=== PATIENT | female | born 1955 | race Caucasian/White ===

== ENCOUNTER 2017-01-21 07:33 | Inpatient (IN) | payer OTHER ==
[~2017-01-21] VITALS: Ht 167.6 cm; Wt 89.8 kg
[~2017-01-21 07:33] MED LIST: ASPIR 8181 MG PO
--- NOTE | 2017-02-03 10:35 | NUR ---
02/03/17 1035 Zoey Gonzalez 1003-PATIENT ARRIVED TO PACU ON 6L MASK O2 SAT 98% NONAROUSABLE. PACKING IN VAGINA CDI NO DRAINAGE. MICHELLE CATHETER IN PLACE BRIGHT YELLOW FROM CYSTOSCOPY. 1010-PATIENT AROUSING TO VERBAL STIMULI ORIENTED TO SITUATION. DENIES PAIN OR NAUSEA. SPINAL LEVEL AT T10. 6L MASK O2 SAT 100%
--- NOTE | 2017-02-03 11:47 | NUR ---
PT ARRIVED TO FLOOR FROM PACU VIA STRETCHER. FULL ASSIST TO HOSPITAL BED SPINAL IS STILL EFFECTIVE. PT VERY DROWSY BUT FULLY ORIENTED. DENIES PAIN, NAUSEA, OR OTHER CONCERNS AT THIS TIME. PT SATTING 94% ON RA. IV IN RIGHT HAND INFUSING WNL, NO REDNESS OR INFLAMMATION AT INSERTION SITE. MINIMAL 1+ EDEMA NOTED OF BILATERAL LOWER EXTREMITIES. SCANT AMOUNT OF RED VAGINAL OUTPUT NOTED, SHANIQUE PAD IN PLACE. MICHELLE PATENT PUTTING OUT CLEAR, NEON YELLOW URINE. PULSE OX AND SCD'S IN PLACE. CALL LIGHT WITHIN REACH.
--- NOTE | 2017-02-03 12:53 | NUR ---
PT'S THERESA SOMEWHAT ANXIOUS-VISITED WITH HIM AND EXPLAINED PROCESS AND STAGES OF THE DAY. HE SEEMED MORE AT EASE. WILL CONTINUE TO FOLLOW
--- NOTE | 2017-02-03 13:17 | NUR ---
SCHEDULED MOTRIN ADMINISTERED. PT REPORTED LOW ABD "CRAMPING" 10/14. PT SIPPING ICE WATER AND EATING BITES OF APPLESAUCE, OCTAVIANO WELL. CALL LIGHT WITHIN REACH.
--- NOTE | 2017-02-03 14:20 | NUR ---
PT MEDICATED WITH IV DILAUDID FOR LOWER ABD, SHANIQUE AREA PAIN. ATE SOME CRACKERS, OCTAVIANO WELL. SPOKE WITH PT ABOUT PLAN OF CARE AND PLAN TO GET UP LATER THIS SHIFT. PT AGREEABLE. AT BEDSIDE. CALL LIGHT WITHIN REACH.
--- NOTE | 2017-02-03 16:05 | NUR ---
PT DANGLED AT EDGE OF BED AND STOOD. UPON STANDING PT BEGAN VOMITING. HAD PT SIT DOWN IMMEDIATELY. PT VOMITED APPROX 500ML OF YELLOWISH EMESIS. MEDICATED WITH IV ZOFRAN, STATES "I'M ALREADY FEELING BETTER." DENIED DIZZINESS OR LIGHT HEADEDNESS UPON STANDING. PT HAD A MODERATE AMOUNT OF VAGINAL BLEEDING, SHANIQUE PAD IN PLACE. PT LYING BACK IN BED COMFORTABLE. TAKING SIPS OF WATER. CALL LIGHT WITHIN REACH.
--- NOTE | 2017-02-03 18:15 | NUR ---
PATIENT SITTING UP IN BED FINISHING DINNER. GAVE FRESH ICE WATER. WASH CLOTH FOR FACE AND HANDS. CALL BUTTON IN REACH. NO OTHER NEEDS AT THIS TIME.
--- NOTE | 2017-02-03 18:30 | NUR ---
PT IN BED, RESTING OFF AND ON. DENIES PAIN OR NAUSEA AT THIS TIME. REPORTS THAT SHE ATE OF HER DINNER AND IS TOLERATING WELL. DENIES NEEDS OR CONCERNS AT THIS TIME. CALL LIGHT WITHIN REACH.
--- NOTE | 2017-02-03 20:00 | NUR ---
RECEIVED REPORT AT 1900. FOUND PT IN BED WITH AT BEDSIDE. PT DENIED PAIN AT THAT TIME.
--- NOTE | 2017-02-03 22:00 | NUR ---
V/S ARE WDL, PT DENIES PAIN AND N/V. ALL LOBES ARE CLEAR, ALL BOWEL TONES ARE HYPOACTIVE. BLEEDING IS MODERATE AT THIS TIME. PAD WAS CHANGED X1 SO FAR. URINE OUTPUT WAS 140ML FROM [id number]. WILL CONTINUE TO MONITOR CLOSELY. ENCOURAGED PT TO INCREASE PO INTAKE.
--- NOTE | 2017-02-04 01:10 | NUR ---
PT IS SLEEPING AT THIS TIME
--- NOTE | 2017-02-04 04:24 | NUR ---
PT IS SLEEPING AT THIS TIME.
--- NOTE | 2017-02-04 05:38 | NUR ---
PT OVERALL HAD A VERY UNEVENTFUL NIGHT. PAIN WAS WELL CONTROLLED OVERALL. NO PRN PAIN MEDS WERE NEEDED. PT RECEIVED REGLAN IV 10MG X2 THIS SHIFT. ALL QUADRANTS HAVE HYPOACTIVE BOWEL TONES THUS FAR. BLEEDING AT 0200 WAS SCANT. PT JUST WALKED TO BATHROOM AND IS TRYING FOR A BM. WILL PULL MICHELLE AFTER SHE IS DONE. V/S WERE WDL. URINE OUTPUT WAS ADEQUATE AND SO IS PO INTAKE.
--- NOTE | 2017-02-04 07:20 | NUR ---
BEDSIDE HANDOFF REPORT RECEIVED FROM ACCOUNTING GENERALIST RN. PT RESTING IN BED. PT DENIES NEEDS AT THIS TIME. DISCUSSED PLAN OF CARE WITH PT.
--- NOTE | 2017-02-04 08:21 | NUR ---
PT REQUESTIGN TO USE RESTROOM, SBA TO BATHROOM, ABLE TO VOID 100 ML, BLADDER SCAN FOR 65 ML. PT ASSISTED BACK TO BED. PT ON ROOM AIR, LUNG SOUNDS CLEAR. PT DENIES NAUSEA, BOWEL TONES ACTIVE, TOLERATING REGUALR DIET. PT CMS INTACT, PULSES PALPABLE. PT SMALL AMOUNT OF VAGINAL BLEEDING, PACKING IN PLACE. PT DENIES NEEDS AT THIS TIME.
[2017-02-04] MEDS ORDERED: IBUPROFEN800 MG PO (13:11)
[2017-02-04] MEDS ORDERED: NORCO 5-325 TA1 EACH PO (13:11)
[2017-02-04] MEDS ORDERED: KONDREMUL2.5 ML/5 M PO (13:12)
[2017-02-04] MEDS ORDERED: SENNA-DOCUSATE1 EAC1 PO (13:12)
--- NOTE | 2017-02-04 14:01 | NUR ---
PT GETTING READY TO BE DC'D TODAY. WAITING FOR HER . SHE WAS ALERT AND ORIENTED. EXTENDED A BLESSING AND SHE THANKED ME FOR COMING BY.
--- NOTE | 2017-02-13 08:20 | OR ---
[facility] [address], [place] [address] Signed DATE OF PROCEDURE: 02/03/17 SURGEON: Priscilla Golden MD. 1st PIERCER: Dr. Dominguez. PREOPERATIVE DIAGNOSES: Uterovaginal prolapse, stress incontinence. POSTOPERATIVE DIAGNOSES: Uterovaginal prolapse, stress incontinence. PROCEDURE Total vaginal hysterectomy, left salpingectomy, uterosacral plication, obturator sling procedure, cystoscopy, and rectocele repair with dermis reinforcement ANESTHESIA: Spinal with IV sedation. ESTIMATED BLOOD LOSS: 100 mL. DRAINS: Lira catheter. PACKS: Vaginal. INDICATIONS AND FINDINGS The patient is a 61-year-old female, 2, para 2, who has a long history of uterovaginal prolapse, which has become more and more symptomatic and she now desires a surgical intervention. She also has a long history of stress incontinence. Kegel exercises have not been helpful. At the time of the exam under anesthesia, the cervix was visible at the hymen. She had a cystocele presenting at the introitus. She also had a grade 2 rectocele. She also had a very short perineum. The uterus was small. The patient's right tube and ovary were previously absent. The patient's left tube and ovary were normal. DESCRIPTION OF PROCEDURE The patient was prepped and draped in the dorsal lithotomy position. A weighted speculum was placed. The anterior and posterior lips of the cervix were grasped with single-tooth tenaculum and injected with 1% Lidocaine with 1:200,000 epinephrine to a volume of 10 mL. The posterior cul-de-sac was then opened sharply with the Grace scissors. The swan neck speculum was then placed to the posterior cul-de-sac. The uterosacral ligaments were grasped bilaterally using the curved Z clamps, divided with the Grace scissors and suture ligated with 0 Vicryl. This was done bilaterally. Following this, the vaginal mucosa was scored with a knife and sharp dissection was used to push the vaginal tissue up off of the cervix. The anterior peritoneum, however, was not opened at that point. Electronically Signed By: PRISCILLA GOLDEN MD 02/13/17 0820 PATIENT NAME: ANTONIO JORDAN OPERATIVE REPORT DATE OF : 55 PHYSICIAN: PRISCILLA GOLDEN MD REPORT #: [id number] REPORT IS CONFIDENTIAL AND NOT TO BE RELEASED WITHOUT AUTHORIZATION [facility] [address], [place] [address] Signed Another bite was taken on each side using the curved Z clamps and divided with the Grace scissors and suture ligated with 0 Vicryl. Following this, further dissection was then anteriorly and the anterior cul-de-sac was opened sharply. Serial bites were taken on each side incorporating both the anterior and posterior leaves of the peritoneum in the cardinal ligament areas and the uterine vessel areas. Each of these were divided with the Grace scissors and suture ligated with 0 Vicryl. This was done bilaterally. At this point, the remaining broad ligament pedicles could be isolated and these were clamped across with a curved Z clamp and divided. Following this, these pedicles were tied with a free tie followed by a suture ligature of 0 Vicryl. Following this, the patient's left tube was identified and grasped with a [place] clamp. It was clamped across and removed sharply. This was followed by a free tie of 0 Vicryl. The cuff was then serially inspected and bleeding points were controlled. The posterior cuff had quite a bit of distance from the peritoneum to the vaginal mucosa and 2 fqmqcx-qc-gecchj were used to bring the peritoneum down to the posterior cuff. There was also some bleeding near the left uterine vessel. This was also controlled with a okqwqr-ce-yfyij suture of 0 Vicryl. Following this because of the significant prolapse, it was felt that plicating the uterosacral ligaments may be helpful preventing future prolapse. This was done with a series of 3 sutures with each of these entering the uterosacral ligament, reefing across the posterior peritoneum and exiting via the opposite uterosacral ligament. These were done using 0 Ethibond sutures. Following this, the vaginal cuff was closed. This was done by incorporating the vaginal mucosa, exteriorizing the broad ligament pedicles coming across the peritoneum anteriorly and exiting via the uterosacral ligament inferiorly. These were tied laterally and this was done bilaterally. The peritoneum was then closed with a ylnjep-nt-rcfbt suture of 3-0 Vicryl. The cuff itself was closed with a running locking stitch of 0 Vicryl. Following this, the cystocele pretty much had completely resolved. There was a fairly short anterior wall. It was felt that proceeding with the sling was the most appropriate option. The vaginal mucosa was then scored in the midline over the urethra with a knife. Sharp dissection was used to separate the vaginal mucosa from the underlying tissue and this was carried out laterally behind the pubic rami on each side. There was some tearing of the tissue on the patient's right. Following this, the obturator notches were identified and incisions were made with a knife overlying these notches. The trocars for the sling were then introduced at the lowest most medial portion of the obturator notch and then brought behind the pubic bone laterally and then brought into the apex of the vaginal incision previously made. This was done bilaterally. At this point, cystoscopy was done. The Lira catheter was removed. She had received IV fluorescein. The 70-degree scope was introduced into the bladder and the bladder was thoroughly evaluated. There was no evidence of any injury to the bladder. There was no evidence of any incursion of the trocars into the bladder. Clear yellow fluorescein-stained urine was seen to freely egress from both of the ureteral orifices. At this point, the cystoscopy was complete and the cystoscope was removed and the Lira catheter replaced. The sling was then Electronically Signed By: PRISCILLA GOLDEN MD 02/13/17 0820 PATIENT NAME: ANTONIO JORDAN OPERATIVE REPORT DATE OF : 55 PHYSICIAN: PRISCILLA GOLDEN MD REPORT #: [id number] REPORT IS CONFIDENTIAL AND NOT TO BE RELEASED WITHOUT AUTHORIZATION [facility] [address], [place] [address] Signed placed on the ends of each of the trocars and as the left hand trocar was being brought through externally, the end of the sling came off the trocar. At this point, this required the trocar to be replaced. This was done in the same manner and cystoscopy was then repeated to assure that there was no injury to the bladder. The Lira catheter was removed and a 70 degree scope again placed. Again, no injury was noted. The sling was then reattached on the patient's left side to the trocar and this was brought through the skin opening. This was done bilaterally. Care was taken to keep the sling in the mid urethral area and with appropriate tension. The excess sling was trimmed at the skin after removing the cover. Following this, the vaginal incision was closed with a running suture of 2-0 Vicryl. A separate closure was needed on the patient's right side because of the tear with a ogflmp-bw-qqnkm suture of 2-0 Vicryl. The labial skin incisions were closed with interrupted sutures of 3-0 Vicryl Rapide. Following this, the rectocele repair was begun. A triangle of tissue was removed from the perineal body with the knife. The vaginal mucosa was undermined and incised in the midline with the Metzenbaum scissors. This was carried out to the apex of the vagina. The posterior wall was noted to be fairly short. The vaginal mucosa was then from the underlying tissue with a combination of blunt and sharp dissection. The dissection was carried out superiorly and laterally to the ischial spines. The Geelbeio device was used to deploy a 0-Vicryl suture into the sacrospinous ligament medial and caudal to the spine. Following this, the perirectal fascial type tissue was reapproximated with interrupted sutures of 0 Vicryl. The tissue was of very poor quality. Following this, the rectal examination was done, which confirmed good reduction of the defect and no sutures compromising the rectallumen. Dermis, which had been prepared according to the package directions and trimmed into a T-shirt type shape, was then sutured at the arms to the sutures at the sacral spinous ligaments. This was tied down with appropriate tension across the top of the vagina. Following this, the graft was tacked into place with interrupted sutures of 2-0 Vicryl. Another rectal examination was done, which confirmed good reduction of the defect and no sutures compromising the rectal lumen. FloSeal was then injected around the sacrospinous ligaments on each side to aid in hemostasis. The vaginal mucosa was then trimmed slightly and the vaginal mucosa was closed in a running suture of 2-0 Vicryl from the apex of the vagina to the hymenal ring. The perineal body was quite short, but the vaginal canal was also fairly short. The decision was made to lengthen the vaginal canal with a running suture of 2-0 Vicryl reapproximating the vaginal tissue through the vestibule. Interrupted sutures of 2-0 Vicryl were placed on the perineal body in an effort to improve the length and strength of the perineum. The perineal skin was closed with subcuticular sutures of 2-0 Vicryl. Inspection of the vault showed good length and caliber, though it was shortened slightly. There was good hemostasis. The vaginal canal was then packed with sulfa-coated gauze. All sponge and needle counts were correct. She tolerated the procedure well and was taken to the recovery room in good condition. Electronically Signed By: PRISCILLA GOLDEN MD 02/13/17 0820 PATIENT NAME: ANTONIO JORDAN OPERATIVE REPORT DATE OF : 55 PHYSICIAN: PRISCILLA GOLDEN MD REPORT #: [id number] REPORT IS CONFIDENTIAL AND NOT TO BE RELEASED WITHOUT AUTHORIZATION [address] [address] Signed Priscilla Golden MD PJW/Modl /[id number] cc: MD Yash Pereira DO Electronically Signed By: PRISCILLA GOLDEN MD 02/13/17 0820 PATIENT NAME: ANTONIO JORDAN OPERATIVE REPORT DATE OF : 55 PHYSICIAN: PRISCILLA GOLDEN MD REPORT #: [id number] REPORT IS CONFIDENTIAL AND NOT TO BE RELEASED WITHOUT AUTHORIZATION
== END 2017-02-04 13:50 | disposition home or self-care (01) | DRG 664 ==
LOC: DSVR 02-03 05:40 → MS 02-03 06:45
PROVIDERS: ADMIT Obstetrics & Gynecology
PROC: 0UT6FZZ Resection of Left Fallopian Tube, Via Natural or Artificial Opening With Percutaneous Endoscopic Assistance (ICD-10-PCS; 2017-02-03)
PROC: 0US94ZZ Reposition Uterus, Percutaneous Endoscopic Approach (ICD-10-PCS; 2017-02-03)
PROC: 0JQC3ZZ Repair Pelvic Region Subcutaneous Tissue and Fascia, Percutaneous Approach (ICD-10-PCS; 2017-02-03)
PROC: 0UT9FZZ Resection of Uterus, Via Natural or Artificial Opening With Percutaneous Endoscopic Assistance (ICD-10-PCS; principal; 2017-02-03 06:45)
PROC: 0TSD4ZZ Reposition Urethra, Percutaneous Endoscopic Approach (ICD-10-PCS; 2017-02-03 06:45)
PROC: 0UTC7ZZ Resection of Cervix, Via Natural or Artificial Opening (ICD-10-PCS; 2017-02-03 06:45)
DX: N18.4 Chronic kidney disease, stage 4 (severe) (principal); N39.3 Stress incontinence (female) (male)
CPT/HCPCS: 00944; 36415; 80048; 85025; C1762; C1771; C2631; J0694; J1100; J1170; J1644; J1885; J2250; J2274; J2405; J2704; J2765; J3010; J7120

== ENCOUNTER 2021-02-14 22:57 | Emergency (ER) | payer MEDICARE, OTHER ==
[~2021-02-14] VITALS: Ht 167.6 cm; Wt 90.7 kg
[~2021-02-14 22:57] MED LIST changes: +IBUPROFEN800 MG PO; +KONDREMUL2.5 ML/5 M PO; +NORCO 5-325 TA1 EACH PO; +SENNA-DOCUSATE1 EAC1 PO
[2021-02-15] MEDS ORDERED: GUAIFENESIN AC473 ML PO (00:22)
== END 2021-02-15 00:46 | disposition home or self-care (01) ==
LOC: ED 22:57
DX: U07.1 COVID-19 (principal); Z79.82 Long term (current) use of aspirin
CPT/HCPCS: 71045; 99283-25

== ENCOUNTER 2022-07-24 06:20 | Day surgery (SDC) | payer MEDICARE, OTHER ==
[~2022-07-24] VITALS: Ht 167.6 cm; Wt 94.5 kg
[~2022-07-24 06:20] MED LIST changes: +CITRACAL-VIT D1 EAC2 PO; +FOSAMAX70 MG PO; +GUAIFENESIN AC473 ML PO; +OSTERA TABLET1 EACH PO; +PROBIOTIC1 EAC5 PO
[2022-07-24] MEDS ORDERED: HYDROCODON-ACE1 EA10 PO (08:19)
[2022-07-24] MEDS ORDERED: CELECOXIB200 MG PO (08:19)
--- NOTE | 2022-07-24 08:23 | NUR ---
07/24/22 0823 Ca Smith 0818- PT ARRIVES TO PACU NONAROUSABLE TO STIMULI NEEDING A JAW THRUST TO MAINTAIN PATENT AIRWAY PT OBSTRUCTS WITHOUT IT. RESP EVEN AND UNLABORED. OXYGEN SAT MID 90'S ON 6L VIA MASK. 0822- PT REMAINS NONAROUSABLE TO STIMULI WITH A JAW THRUST BEING PERFORMED.
--- NOTE | 2022-07-24 09:00 | NUR ---
PT BACK TO ROOM FROM PACU VIA BED. REPORT RECEIVED FROM NOAH JONES. PT ORIENTED BUT DROWSY AT THIS TIME. PT REPORTS 5/10 LFT KNEE PAIN (PT REPORTS TOLERABLE AND DOES NOT NEED PRN PAIN MED AT THIS TIME). PT REPORTS NO NAUSEA, DIZZINESS, N/T, SOB AT THIS TIME. PT 97% ON RA, NO SIGNS OF RESP. DISTRESS. LFT KNEE IS ELEVATED W/ICE ON TOP OF DRESSING. DRESSING IS C/D/I, NO SIGNS OF BLEEDING AT THIS TIME. PULSE PRESENT AND SKIN IS PINK/WARM/DRY. IV SITE WNL, FLUIDS INFUSING DIRECTED. SCD'S IN PLACE. PT TOLERATING SIPS OF WATER AT THIS TIME. AT BEDSIDE. CALL LIGHT WITHIN REACH, NO FURTHER NEEDS AT THIS TIME.
--- NOTE | 2022-07-24 09:20 | OR ---
[facility] [address] [place], [place] [address] Signed DATE OF OPERATION: 07/24/2022 SURGEON: Dimple Stubbs MD PREOPERATIVE DIAGNOSIS: Medial meniscus tear, left knee. POSTOPERATIVE DIAGNOSIS: Medial meniscus tear, left knee. PROCEDURE PERFORMED: Left knee arthroscopy with partial medial meniscectomy. WOOD BORING MACHINE OPERATOR: None. ANESTHESIA: General. BLOOD LOSS: 55 mL. BRIEF HISTORY: Jeri is a 67-year-old female with pain and locking in her knee. She had minimal to mild arthritis and MRI confirmed a large posteromedial meniscus tear. Risks and benefits of operative treatment were discussed with her. She elected to proceed. Once consent was obtained, she was taken to the operating room. After adequate anesthesia, she was placed on the operating room table. The right leg was flexed, abducted and externally rotated on a well-padded leg gracia. The left was placed on well-padded proximal thigh leg gracia and the leg was prepped and draped in a standard sterile fashion. Portal sites were then injected with 0.25% Marcaine with epinephrine. Standard inferolateral and superolateral portals were made and the scope was introduced in the knee. ARTHROSCOPIC FINDINGS: The patella showed grade 2 chondromalacia, grade 1 on the trochlear side. There is moderate synovitis throughout the knee. The medial compartment showed grade 3 changes to a small portion of the femur and grade 2 to the remaining of the joint. There was a complex tear extending from posterior horn to the posteromedial corner. This had several unstable flaps. The lateral compartment was intact except for one small area of grade 2 chondromalacia. Electronically Signed By: DIMPLE STUBBS MD 07/24/22 0920 PATIENT NAME: JERI JORDAN OPERATIVE REPORT DATE OF : 55 REPORT #: [id number] PHYSICIAN: DIMPLE STUBBS MD PCP: CLAUDY GANN PAC REPORT IS CONFIDENTIAL AND NOT TO BE RELEASED WITHOUT AUTHORIZATION [facility] [address] [place], [place] [address] Signed DESCRIPTION OF OPERATION: Standard inferomedial portal was made after localization using a spinal needle. The straight biter was then used to trim the meniscus tear back to a stable rim. Using the shaver, we then feathered out the meniscus and removed all debris. Several chondral flaps on the medial femoral condyle were also debrided. The scope was then withdrawn. Portals were closed with 3-0 nylon and dressed with Adaptic, ABD, and Elier wrap. The knee was injected with 60 mg of Toradol at the end of the case. She tolerated the procedure well. All sponge, needle, and instrument counts were correct. Dimple Stubbs MD BA/JENNIFERL /[id number] Copies: ~ Electronically Signed By: DIMPLE STUBBS MD 07/24/22 0920 PATIENT NAME: JERI JORDAN OPERATIVE REPORT DATE OF : 55 REPORT #: [id number] PHYSICIAN: DIMPLE STUBBS MD PCP: CLAUDY GANN PAC REPORT IS CONFIDENTIAL AND NOT TO BE RELEASED WITHOUT AUTHORIZATION
--- NOTE | 2022-07-24 09:35 | NUR ---
ANSWERED PT CALL LIGHT FOR NEED TO VOID. PT STANDING AT BEDSIDE STATED "I FEEL LIKE IM DRUNK", BEDSIDE COMMODE USED FOR SAFETY. PT GAIT IS WEAK AND SLIGHTLY UNSTEADY, 1PA TO BEDSIDE COMMODE. PT URINE VOID AT THIS TIME, SELF SHANIQUE CARE. PT NOW BACK IN BED. CALL LIGHT WITHIN REACH, NO FURTHER NEEDS 1000: IN ROOM FOR ASSESSMENT AND VS. VSS. PT REPORTS PAIN 5/10 (TOLERABLE, NO NEED FOR PRN PAIN MED PER PT). PT REPORTS NO NAUSEA, DIZZINESS, N/T, SOB. PT REMAINS ON RA W/O2 AT 98%. LFT EXTREMITY ELEVATED, ICE PACK IN PLACE, DRESSING IS C/D/I, NO SIGNS OF BLEEDING AT THIS TIME. SCD'S IN PLACE. IV SITE WNL, SALINE LOCKED. PT ABLE TO STAND AT BEDSIDE W/OUT DIFFICULTY AND ABLE TO TAKE SMALL STEPS TO AND FROM DOORWAY W/OUT DIFFICULTY AND STEADY/WEAK GAIT. PT GETTING DRESSED W/ASSISTANCE OF AT THIS TIME.
--- NOTE | 2022-07-24 10:15 | NUR ---
PROVIDED DISCHARGE TEACHING TO PT AND , ALL QUESTIONS ANSWERED AT THIS TIME. PT TRANSPORTED VIA WHEELCHAIR TO CAR BROUGHT TO FRONT ENTRANCE. NO FURTHER NEEDS. ALL PATIENTS ITEMS SENT W/PT IN GREEN BAG.
--- NOTE | 2022-07-24 10:26 | NUR ---
PT ALERT, ORIENTED AND SOMEWHAT ANXIOUS. PTS' WILL BE HERE AT SD. ALL QUESTIONS ASKED ANSWERED. PT REQUESTED PRAYER, GAVE BLESSING.WILL FOLLOW
== END 2022-07-24 10:15 | disposition home or self-care (01) ==
LOC: DS 06:20
PROVIDERS: ATTEND Specialist
PROC: 0SBD4ZZ Excision of Left Knee Joint, Percutaneous Endoscopic Approach (ICD-10-PCS; principal; 2022-07-24 07:55)
DX: S83.232A Complex tear of medial meniscus, current injury, left knee, initial encounter (principal); M94.262 Chondromalacia, left knee; M65.862 Other synovitis and tenosynovitis, left lower leg; X58.XXXA Exposure to other specified factors, initial encounter; Z79.82 Long term (current) use of aspirin
CPT/HCPCS: J0131; J0690; J1100; J1885; J2001; J2405; J2704; J7121

== ENCOUNTER 2025-02-17 12:30 | Observation (INO) | payer MEDICARE, OTHER ==
[~2025-02-17] VITALS: Ht 167.6 cm; Wt 81.5 kg
[~2025-02-17 12:30] MED LIST changes: +CELECOXIB200 MG PO; +CYCLOBENZAPRINE5 MG PO; +DULOXETINE HCL30 MG PO; +HYDROCODON-ACE1 EA10 PO; +METHYLPREDNISOLO4 M1 PO; +NAPROSYN500 MG PO
[2025-02-17] MEDS ORDERED: HYDROmorphone HCL 1 MG/ML SYR IV PRN ×3 (13:45→18:00)
[2025-02-17 13:53] LABS: BASOPHILS 0.7 % (0.1-1.2); EOSINOPHILS 0.8 % (0.7-5.8); LYMPHOCYTES 31.2 % (19.3-51.7); MCH 30.0 PG (25.6-32.2); MCHC 34.4 g/dL (32.2-35.5); MCV 87.3 fL (79.4-94.8); MONOCYTES 9.2 % (4.7-12.5); NEUTROPHILS 58.0 % (34.0-71.1); RBC 4.63 M/uL (3.93-5.22)
[2025-02-17 14:11] LABS: ALT (SGPT) 14.0 U/L (14-59); AST (SGOT) 18.0 U/L (15-37); GLOMERULAR FILTRATION RATE,EST 81.0 mL/min (>60); PROTEIN, TOTAL 7.2 g/dL (6.4-8.2); UREA NITROGEN 10.0 mg/dL (7-18)
[2025-02-17] MEDS ORDERED: SODIUM CHLORIDE 0.9% 1,000 ML IV SCH (15:00)
[2025-02-17 15:03] LABS: BLOOD/HGB, URINE NEGATIVE (Negative); KETONE, URINE SMALL (Negative); LEUK ESTERASE, URINE SMALL (negative); NITRITE, URINE NEGATIVE (negative)
[2025-02-17 15:13] LABS: BACTERIA, URINE NONE SEEN /hpf (negative); CASTS, URINE NONE SEEN \\lpf; CRYSTALS, URINE NONE SEEN (0-1+); EPITHELIAL CELLS, URINE SQUAMOUS 1+ /lpf (0-1+); REFLEX CULTURE, URINE No (No)
[2025-02-17] MEDS ORDERED: CEFAZOLIN SODIUM 2 GM in SODIUM CHLORIDE 0.9% 100 ML IV ONE (15:45)
[2025-02-17] MEDS ORDERED: fentaNYL citrate 100 MCG/2 ML VIAL ONE (16:27)
[2025-02-17] MEDS ORDERED: ROCURONIUM BROMIDE 50 MG/5 ML SYR ONE (16:32)
[2025-02-17] MEDS ORDERED: LIDOCAINE HCL 2% 5 ML SDV ONE (16:32)
[2025-02-17] MEDS ORDERED: DEXAMETHASONE SOD PHOS 4 MG/ML VIAL ONE (16:33)
[2025-02-17] MEDS ORDERED: SEVOFLURANE 250 ML BTL INH ONE (16:58)
[2025-02-17] MEDS ORDERED: ACETAMINOPHEN 1,000 MG/100 ML VIAL ONE (17:13)
[2025-02-17] MEDS ORDERED: METOCLOPRAMIDE HCL 10 MG/2 ML SDV IV PRN (17:30)
[2025-02-17] MEDS ORDERED: fentaNYL citrate 50 MCG/ML SDV IV PRN (17:30)
[2025-02-17] MEDS ORDERED: NALOXONE HCL 0.4 MG SYR IV PRN ×2 (17:30→18:00)
[2025-02-17] MEDS ORDERED: IBLOOD GLUCOSE TEST STRIP 1 EA TEST VI PRN (17:30)
[2025-02-17] MEDS ORDERED: SUGAMMADEX SODIUM 200 MG/2 ML ML ONE (17:31)
[2025-02-17] MEDS ORDERED: KETOROLAC TROMETHAMINE 30 MG/ML VIAL ONE (17:47)
--- NOTE | 2025-02-17 17:58 | NUR ---
02/17/25 1758 Jada Serna PATIENT ARRIVES IN PACU WITH ORAL AIRWAY IN PLACE. GISSELL WELLS IS HOLDING A JAW THRUST FOR ADEQUATE GAS EXCHANGE.
[2025-02-17] MEDS ORDERED: LACTATED RINGER'S 1,000 ML IV SCH (18:00)
[2025-02-17] MEDS ORDERED: HYDROCODONE/ACETA 5/325 TAB PO PRN (18:00)
--- NOTE | 2025-02-17 19:07 | NUR ---
PATIENT BROUGHT TO 113 FROM PACU, RECEIVED REPORT. CPOX IN PLACE, PATIENT ON 2L NC. VS OBTAINED AND RECORDED. RESPIRATIONS EVEN AND UNLABORED, PATIENT RESTING BUT AROUSABLE WITH VERBAL CUES.
[2025-02-17 19:14] VITALS: BP 143/71
--- NOTE | 2025-02-17 19:17 | NUR ---
1904 - pt arrived from pacu via bed. on o2, somnolent. [facility]
--- NOTE | 2025-02-17 19:54 | NUR ---
ROUNDED ON PATIENT, ASSESSMENT COMPLETED. PATIENT DROWSY, UNABLE TO STAY AWAKE AND ANSWER HISTORY AND ADMISSION QUESTIONS AT THIS TIME. ANSWERS RN QUESTIONS IN SHORT SENTENCES. ABDOMEN IS SOFT, BOWL TONES ABSENT AT THIS TIME. SURGICAL DRESSING IS C/D/I. SHE DENIES ANY NEEDS, VERBALIZED UNDERSTANDING AND USE OF THE CALL LIGHT WHICH IS WITHIN HER REACH.
[2025-02-17 20:10] VITALS: BP 130/77
--- NOTE | 2025-02-17 20:38 | OR ---
[facility] [address], [place] [address] Signed DATE OF OPERATION: 02/17/2025 SURGEON: Luther Castro DO PREOPERATIVE DIAGNOSIS: Incarcerated right inguinal hernia with partial small bowel obstruction. POSTOPERATIVE DIAGNOSIS: Incarcerated right inguinal hernia with partial small bowel obstruction. PROCEDURES PERFORMED: 1. Right inguinal hernia repair with Onlay mesh. 2. Release of partial small bowel obstruction. ANESTHESIA: General. ESTIMATED BLOOD LOSS: Minimal. DRAINS: None. COMPLICATIONS: None. DESCRIPTION OF THE PROCEDURE: The patient was brought to the operating room, placed in the supine position. After induction of general endotracheal anesthesia, the lower abdomen was then sterilely shaved, prepped, and draped in the usual fashion. A Lira catheter was placed prior to this. After the abdomen was sterilely shaved and prepped, appropriate time-out was taken, and all were in agreement. Utilizing an 11 blade scalpel in the inguinal region, a linear incision was then made on the right side down to the subcutaneous tissue. Bleeding was controlled with electrocautery. Subcutaneous tissues were then further mobilized to the external oblique aponeurosis. The aponeurosis was then opened utilizing both blunt and sharp technique and Bovie cautery. The floor of the inguinal canal was then inspected and found to be completely disrupted with a knuckle of small bowel, the antimesenteric border in the inguinal canal. The floor and the peritoneum were then opened utilizing a blunt and sharp technique and Bovie cautery. The knuckle of small bowel and the antimesenteric border was then released. It was not ischemic in Electronically Signed By: LUTHER CASTRO DO 02/17/252037 PATIENT NAME: ANTONIO JORDAN OPERATIVE REPORT DATE OF : 55 REPORT #: [id number] PHYSICIAN: LUTHER CASTRO DO PCP: CLAUDY GANN PAC REPORT IS CONFIDENTIAL AND NOT TO BE RELEASED WITHOUT AUTHORIZATION [facility] [address] [place], [place] [address] [address] and not compromised in any way. The small bowel was then run from the terminal ileum past the area of incarceration into the area of the jejunum. No further small bowel injuries were noted. The peritoneum was then closed with a running stitch of 0 Vicryl. The inguinal canal was then recreated and repaired with interrupted 0 Ethibonds. An Onlay mesh was then fashioned on top of the internal and transversalis and secured with the interrupted 0 Ethibonds along the ilioinguinal ligament, the pubic tubercle and along the musculature of the medial side. This was thoroughly irrigated and dried. No other bleeding sites were apparent. The aponeurosis was then reconstructed with a running stitch of 0 Vicryl, and the subcutaneous tissues were irrigated and dried. The subcutaneous tissue was closed with a 2-0 Vicryl in an inverted fashion, interrupted, and the skin was closed with a 4-0 Monocryl in a subcuticular interrupted fashion. The Dermabond dressing was applied. Sterile dressing was applied. The patient tolerated the procedure well and to recovery room in satisfactory condition. Luther Castro DO RS/MODL /[id number] Copies: ~ Electronically Signed By: LUTHER CASTRO DO 02/17/25 2038 PATIENT NAME: ANTONIO JORDAN OPERATIVE REPORT DATE OF : 55 REPORT #: [id number] PHYSICIAN: LUTHER CASTRO DO PCP: CLAUDY GANN PAC REPORT IS CONFIDENTIAL AND NOT TO BE RELEASED WITHOUT AUTHORIZATION
[2025-02-17 20:47] VITALS: BP 130/77
[2025-02-17 21:12] VITALS: BP 132/65
[2025-02-17 21:13] VITALS: BP 132/65
--- NOTE | 2025-02-17 21:14 | NUR ---
PT MORE AWAKE, STILL ON 1.5LPOST OP O2 NC. DENIES C/OPAIN. WILL TRY AND GIVE HER CLEAR FLUYIDS AND IF TOLERATED WILL TRY CRACKERS. PRIMARY RN TO BE NOTIFIED. PTS IN ROOM.
--- NOTE | 2025-02-17 21:30 | NUR ---
Pt more awake, tolerating clear liquids, tolerated well, after 20 minutes, no c/o emesis or cough, saltine crackers given
[2025-02-17] MEDS ORDERED: DEXTROSE 5% IV SCH (22:00)
[2025-02-17] MEDS ORDERED: CEFAZOLIN SOD IV SCH (22:00)
[2025-02-17 22:05] VITALS: BP 120/59
--- NOTE | 2025-02-17 22:21 | NUR ---
PATIENT WOKE TO RN ENTERING ROOM, CPOX AT BEDSIDE. SO AT BEDSIDE SLEEPING. RESPIRATIONS EVEN AND UNLABORED, SCHEDULED IV MEDICATION STARTED AT THIS TIME. SHE DENIES ANY NEEDS, STATES SHE IS TOLERATING WATER AND CRACKERS WELL, DENIES NAUSEA. CALL LIGHT IN REACH
--- NOTE | 2025-02-17 22:56 | NUR ---
ROUNDED ON PATIENT, PATIENT RESTING WITH EYES CLOSED, RESPIRATIONS EVEN AND UNLABORED. NO NEEDS IDENTIFIED, IV MEDICATION COMPLETED. IVF CONTINUING TO INFUSE WITHOUT DIFFICULTY. CALL LIGHT IN REACH
--- NOTE | 2025-02-17 23:57 | NUR ---
PRN PAIN MEDICATION GIVEN TO PATIENT. PATIENT IS ALERT AND ORIENTED, RATING PAIN 7/10. PILLOW UNDER LEFT HIP PER PATIENT REQUEST. STATES NO OTHER NEEDS, CALL LIGHT IN REACH.
--- NOTE | 2025-02-18 01:35 | NUR ---
ROUNDED ON PATIENT. PATIENT RESTING WITH EYES CLOSED, RESPIRATIONS EVEN AND UNLABORED. CPOX AT BEDSIDE. NO NEEDS IDENTIFIED, CALL LIGHT IN REACH
[2025-02-18 02:16] VITALS: BP 124/67
[2025-02-18 02:17] VITALS: BP 124/67
--- NOTE | 2025-02-18 02:27 | NUR ---
PATIENT UP TO COMMODE. VOIDED AND BACK TO BED WITHOUT DIFFICULTY. SHE REPORTS SOME DRY COUGHING, EDUCATED ON HUGGING PILLOW WHILE COUGHING TO HELP WITH THE PAIN. CPOX AT BEDSIDE, PATIENT ON 1L NC. VS OBTAINED AND RECORDED, INTAKE AND OUTPUT DOCUMENTED. NO FURTHER NEEDS, CALL LIGHT IN REACH
--- NOTE | 2025-02-18 03:51 | NUR ---
ROUNDED ON PATIENT, RESPIRATIONS EVEN AND UNLABORED. NO NEEDS IDENTIFIED, CPOX AT BEDSIDE, PATIENT ON 1L NASAL CANNULA. CALL LIGHT IN REACH
[2025-02-18 05:35] VITALS: BP 118/64
--- NOTE | 2025-02-18 06:05 | NUR ---
ROUNDED ON PATIENT, PATIENT REPORTS 7/10 ABD PAIN, REQUESTS PRN PAIN MEDICATION. NEW IVF BAG HUNG PER ORDER. PATIENT DENIES ANY OTHER NEEDS, BOWEL TONES ACTIVE, TENDER. SURGICAL DRESSING C/D/I. CALL LIGHT IN REACH
[2025-02-18 06:28] VITALS: BP 118/64
--- NOTE | 2025-02-18 06:41 | NUR ---
SKILL LABOR HELPT PT USE THE BSC AND BACK TO BED. SKILL LABOR LEFT PT WITH SCD'S ON AND CALL LIGHT WITHIN REACH.
--- NOTE | 2025-02-18 06:55 | NUR ---
IN ROOM IN RESPONSE TO IV PUMP ALARMING. IV MEDICATION COMPLETE. PATIENT RESTING, RESPIRATIONS EVEN AND UNLABORED. NO NEEDS IDENTIFIED, CALL LIGHT IN REACH
--- NOTE | 2025-02-18 07:13 | NUR ---
VERBAL REPORT RECIVED BY ROBERT SLOAN. PATIENT RESTING AWAKE IN BED WHITNEY FLORES IN THE ROOM. CPOX IN PLACE, BREATHING EVEN AND UNLABORED. CALL LIGHT IN REACH NO REQUESTS AT THIS TIME.
[2025-02-18] MEDS ORDERED: IPRATROPIUM BRO30 ML NAS (07:23)
[2025-02-18] MEDS ORDERED: VALACYCLOVIR1000 MG PO (07:25)
--- NOTE | 2025-02-18 07:59 | NUR ---
DR HAMILTON NOTIFIED OF 02/17 POTASSIUM OF 3.2 AND NO AM LABS FOR 02/18. NO NEW ORDERS RECIEVED.
--- NOTE | 2025-02-18 09:30 | NUR ---
IS PROVIDED, EDUCATION ON IS PROVIDED. PATIENT DEMONSTRATES AND VERBALIZES UNDERSTANDING OF IS USE.
--- NOTE | 2025-02-18 09:37 | NUR ---
PATIENT HAD 800 ML EMESIS, NOTFIED. JORGE RECIEVED FOR NAUSEA (SEE EMAR). FRESH ICE PACK GIVEN FOR PATIENT COMFORT. NO FURTHER EMESIS AT THIS TIME, PATIENT RESTING IN BED. FAMILY IN THE ROOM, CALL LIGHT IN REACH.
[2025-02-18 09:42] VITALS: BP 115/72
[2025-02-18 09:44] VITALS: BP 115/72
[2025-02-18] MEDS ORDERED: HYDROCODON-ACE1 EA10 PO (09:49)
[2025-02-18] MEDS ORDERED: CEPHALEXIN500 M1 PO (09:50)
[2025-02-18] MEDS ORDERED: ONDANSETRON ODT4 MG PO (09:51)
--- NOTE | 2025-02-18 10:42 | NUR ---
CHANGED THE PT'S GOWN, SHE HAD THROWN UP AND HER GOWN WAS MESSY. GOT PT FRESH ICE WATER, ICE CHIPS, AND AN ICE PACK. PT HAS A VISITOR IN THE ROOM AND THE TV ON, SITTING UP IN BED. CALL LIGHT WITHIN REACH AND PT REPORTS NEEDING NOTHING MORE AT THIS TIME.
--- NOTE | 2025-02-18 11:18 | NUR ---
medications reconiciled
--- NOTE | 2025-02-18 11:36 | NUR ---
PT DENIES NAUSEA. EATS CRACKERS, TOLERATES THIS WELL. NORCO RECEIVED FOR INCISIONAL PAIN, SEE EMAR.
--- NOTE | 2025-02-18 12:05 | NUR ---
DISCUSSED DISCHARGE INSTRUCTIONS WITH PT AND DAUGHTER, BOTH VERBALIZE UNDERSTANDING. VSS. IV REMOVED, TIP INTACT, GAUZE AND COBAN DRESSING APPLIED TO SITE, PT TOLERATED WELL. PT DRESSES SELF. PT LEAVES MED-SURG WITH BELONGINS; CELL PHONE LIBRARY CLERK (PHONE TAKNE BY SPOUSE), RX AND FRESH ICE PACK. NII HOSE IN PLACE TO BLE. PT ESCORTED VIA WHEELCHAIR TO PRIVATE CAR DRIVEN BY FAMILY MEMBER.
[2025-02-19] MEDS ORDERED: CEPHALEXIN500 MG PO (18:15)
== END 2025-02-18 12:05 | disposition home or self-care (01) ==
LOC: ED 12:30 → MS 12:32
PROVIDERS: Emergency Medicine; ADMIT Surgery; ATTEND Surgery
PROC: 0YU50JZ Supplement Right Inguinal Region with Synthetic Substitute, Open Approach (ICD-10-PCS; principal; 2025-02-17 17:03)
DX: K40.30 Unilateral inguinal hernia, with obstruction, without gangrene, not specified as recurrent (principal); K56.600 Partial intestinal obstruction, unspecified as to cause
CPT/HCPCS: 00830; 36415; 72193; 80053; 81001; 85025; 94762; 96365; 96375; 96376; 99285-25; C1781; J0131; J0688; J0690; J1100; J1171; J1885; J2003; J2405; J2704; J3010; J3490; J7030; J7121; Q9967

== ENCOUNTER 2025-02-19 17:43 | Inpatient (IN) | payer MEDICARE, OTHER ==
[~2025-02-19] VITALS: Ht 167.6 cm; Wt 79.1 kg
[~2025-02-19 17:43] MED LIST changes: +CEPHALEXIN500 M1 PO; +IPRATROPIUM BRO30 ML NAS; +ONDANSETRON ODT4 MG PO; +VALACYCLOVIR1000 MG PO
--- OUTSIDE RECORDS SUMMARY | 2025-02-19 17:50 | XMS ---
PreManage Notification: ANTONIO JORDAN Security Car Racer Events No recent Security Events currently on file CRITERIA MET - [facility] [place] - 2 Visits in 30 Days CARE PROVIDERS There are no care providers on record at this time. Dani has no Care Guidelines for this patient. Joni VISIT COUNT (12 MO.) 2 [facility] Nettie H. TOTAL 2 NOTE: Visits indicate total known visits. ED/C VISIT TRACKING (12 MO.) 02/19/2025 17:44 [facility] [place] TYPE: Emergency COMPLAINT: - POST OP PROBLEM 02/17/2025 12:31 [facility] TYPE: Emergency COMPLAINT: - PELVIC PAIN INPATIENT VISIT TRACKING (12 MO.) 02/17/2025 12:32 [facility] [place] TYPE: Observation COMPLAINT: - RIGHT INGUINAL HERNIA WITH SMALL BOWL OBSTRUCTION [email or web address]
[2025-02-19] MEDS ORDERED: CEPHALEXIN500 MG PO (18:15)
[2025-02-19 19:30] LABS: BASOPHILS 0.3 % (0.1-1.2); EOSINOPHILS 0.1 % (0.7-5.8); LYMPHOCYTES 7.2 % (19.3-51.7); MCH 30.0 PG (25.6-32.2); MCHC 33.4 g/dL (32.2-35.5); MCV 89.7 fL (79.4-94.8); MONOCYTES 7.4 % (4.7-12.5); NEUTROPHILS 84.6 % (34.0-71.1); RBC 5.14 M/uL (3.93-5.22)
[2025-02-19] MEDS ORDERED: PROCHLORPERAZINE EDISYLATE 10 MG/2 ML VIAL IV ONE (19:45)
[2025-02-19] MEDS ORDERED: MORPHINE SULFATE 4 MG/ML VIAL IV ONE (19:45)
[2025-02-19] MEDS ORDERED: SODIUM CHLORIDE 0.9% 1,000 ML IV ONE (19:45)
[2025-02-19 19:48] LABS: ALT (SGPT) 17.0 U/L (14-59); AST (SGOT) 19.0 U/L (15-37); GLOMERULAR FILTRATION RATE,EST 52.0 mL/min (>60); PROTEIN, TOTAL 7.6 g/dL (6.4-8.2); UREA NITROGEN 20.0 mg/dL (7-18)
[2025-02-19 21:03] LABS: BLOOD/HGB, URINE NEGATIVE (Negative); KETONE, URINE TRACE (Negative); LEUK ESTERASE, URINE NEGATIVE (negative); NITRITE, URINE NEGATIVE (negative)
[2025-02-19 21:10] LABS: BACTERIA, URINE NONE SEEN /hpf (negative); CASTS, URINE NONE SEEN \\lpf; CRYSTALS, URINE NONE SEEN (0-1+); EPITHELIAL CELLS, URINE SQUAMOUS 3+ /lpf (0-1+); REFLEX CULTURE, URINE No (No)
[2025-02-19] MEDS ORDERED: SUCCINYLCHOLINE IN 0.9% NACL 200 MG/10 ML SYRINGE ONE (22:38)
[2025-02-19] MEDS ORDERED: LIDOCAINE HCL 2% 5 ML SDV ONE (22:38)
[2025-02-19] MEDS ORDERED: MAGNESIUM SULFATE 1 GM/2 ML VIAL ONE (22:38)
[2025-02-19] MEDS ORDERED: KETAMINE in NS 50 MG/5 ML SYR ONE (22:38)
[2025-02-19] MEDS ORDERED: fentaNYL citrate 100 MCG/2 ML VIAL ONE (22:38)
[2025-02-19] MEDS ORDERED: ROCURONIUM BROMIDE 50 MG/5 ML SYR ONE (22:38)
[2025-02-19] MEDS ORDERED: DEXAMETHASONE SOD PHOS 4 MG/ML VIAL ONE (22:38)
[2025-02-19] MEDS ORDERED: SODIUM CHLORIDE 0.9% 40 ML IV ONE (22:41)
[2025-02-19] MEDS ORDERED: ACETAMINOPHEN 1,000 MG/100 ML VIAL ONE (22:41)
[2025-02-20] VITALS (10 sets, daily range): BP systolic 120–131; BP diastolic 53–84
[2025-02-20] MEDS ORDERED: DEXAMETHASONE SOD PHOS 4 MG/ML VIAL ONE (00:11)
[2025-02-20] MEDS ORDERED: Ropivacaine HCl 0.5% 30 ML VIAL ONE (00:11)
[2025-02-20] MEDS ORDERED: SUGAMMADEX SODIUM 200 MG/2 ML ML ONE (00:19)
[2025-02-20] MEDS ORDERED: BUPIVACAINE HCL 0.5% 30 ML VIAL ONE (00:19)
[2025-02-20] MEDS ORDERED: PROCHLORPERAZINE EDISYLATE 10 MG/2 ML VIAL IV PRN ×2 (00:45)
[2025-02-20] MEDS ORDERED: MORPHINE SULFATE 10 MG/ML VIAL IV PRN ×2 (00:45)
[2025-02-20] MEDS ORDERED: LACTATED RINGER'S 1,000 ML IV SCH ×2 (00:45)
--- NOTE | 2025-02-20 01:28 | NUR ---
02/20/25 0128 Odin Hoffman 0053-PT INTO PACU ON 6L O2 VIA MASK. SATS STABLE AT 95% OR GREATER. PT NON-RESPONSIVE TO TACTILE STIMULI. NG TUBE IN PLACE TO R NARE ATTACHED TO WALL SUCTION. 0058-PT NOTED WITH SLIGHT SNORE. HEAD REPOSITIONED AND SNORE RESOLVED. BREATHING REMAINS EVEN AND UNLABORED. SATS STABLE ON RA AT 95%^ OR GREATER. SURGICAL DRSG APPEARS CDI. 0103-PT REMAINS UNRESPONSIVE TO TACTILE STIMULI. O2 REMAINS IN PLACE VIA NC AT 6L/MIN WITH SATS 95% OR GREATER. 0108-PTS HEAD REPOSITIONED WITH RESOLUTION OF SNORING NOTED. BREATHING APPEARS EVEN AND UNLABORED. 0112-PT AROUSING WITH TACTILE STIMULI. PT DENIES PAIN OR NAUSEA WHEN ASKED. 0114-O2 MASK REMOVED. SATS STABLE AT 92% OR GREATER. 0116-PT DOZING ON AND OFF. SATS NOTED TO DECREASE TO 88%. PT ENSOURAGED TO DEEP BREATH. SATS REMAIN IN UPPER 80'S.NC PLACED AT 2L. 0117-SATS REMAIN IN UPPER 80'S. O2 TITRATED UP TO 3L. SATS IMPROVED TO 90-94%. 0122. PT CONT TO DOZE ON AND OFF. EASILY AROUSES TO VERBAL STIMULI. PT CONT TO DENY PAIN OR NAUSEA WHEN ASKED. 0127-BREATHING REMAINS EVEN AND UNLABORED. SATS STABLE AT 90-92% ON 3L/NC.
--- NOTE | 2025-02-20 01:40 | NUR ---
admitted at 0140 room 112 via bed from PACU, very drowsy, on 3LNC, not chronic, POX post op at bedside. RNGT to LIWS in place. draining green colored drainage. R inguinal area dressing CDI. IVF infusing RA. scds in place. had a f/c that was dc'd at 0100 or so. Pt NPO, oral care done, cooperative with assesment, but too drowsy to complete admit questrions, will complete ffrom previous admit a few days ago, that admit was done by this RN. Family not in room at this time, will clarify some questions with fmily when they arrive
[2025-02-20] MEDS ORDERED: CEFOXITIN SODIUM IV SCH ×2 (02:00)
[2025-02-20] MEDS ORDERED: SODIUM CHLORIDE 0.9% IV SCH ×2 (02:00)
--- NOTE | 2025-02-20 02:00 | NUR ---
still very drowsy, informed of reasong behing NGT and to not pull out, blings as a yes. family in room, pt denies c/o pain. still on 3LNC and post op CPOX on at bedside, IVF infusing w/o problems, scds in place
--- NOTE | 2025-02-20 05:13 | NUR ---
cooperative with vitals, denies c/o pain, drowsy, on 3lnc, cpox post op at bedside. O2 not chronic. dressing R inguinal area CDI. scds in place, IVF infusing w/o problems. no void since admit to floor, denies need to urinate at this time. NPO, oral care done, at bedside
--- NOTE | 2025-02-20 06:34 | NUR ---
NO VOID SINCE ADMIT FROM PACU, BLADDER SCANNED AT THIS TIME PER SCANNER APPROX 163CC IN BLADDER, PT DENIES NEED TO URINATE. WILL ASSESS AGAIN IN 2 HOURS, WILL NOTIFY INCOMING SHIFT. ORAL CARE DONE. O2 3LNC ON AT THIS TIME O2 NOT CHRONIC, POST OP CPOX AT BEDSIDE SATS 94%. NO C/O PAIN. IVF INSUFING W/O PROBLEMS. SCDS IN PLACE, R INGUINAL AREA DRESSING CDI. ROOMING IN
[2025-02-20] MEDS ORDERED: CEFAZOLIN SODIUM 2 GM in SODIUM CHLORIDE 0.9% 100 ML IV SCH ×2 (08:00)
--- NOTE | 2025-02-20 09:30 | NUR ---
Spoke with Jeri. She states they were packing and moving when she became ill. They have bought a home in [place] and were in the middle of moving. Pt denies issues walking or getting around prior to illness. Her new home has a ramp. She states her spouse has memory issues. She denies using any DME, but does access to a walker. She states she spoke with her . this morning, plan is to dc tomorrow most likely. It depends if the NG drainage clears. Pt denies any needs to dc. Address update emailed to admitting for pts current address in [place].
[2025-02-20] MEDS ORDERED: VITAMIN E400 UNI1 PO (10:59)
--- NOTE | 2025-02-20 10:59 | NUR ---
MED REC COMPLETE
--- NOTE | 2025-02-20 11:55 | NUR ---
THIS RN AND FIREFIGHTING EQUIPMENT SPECIALIST, IN TO GET PATIENT UP TO CHAIR. PT WAS UNSTEADY, UTILIZED GAIT BELT WITH 2PA/FWW. PT ABLE TO AMBULATE BUT UNSTEADY. UP TO CHAIR, PILLOW GIVEN FOR SPLINTING WHEN IN CHAIR. NG HOOKED BACK UP TO SUCTION AGAIN, WERE ATTEMPTING TO AMBULATE BUT BECAUSE UNSTEADY WILL AWAIT TILL LATER. WILL DISCUSS GETTING PT/OT FOR PATIENT SHE IS UNSTEADY AND NORMALLY INDEPENDENT/STEADY AT BASELINE. PT SITTING UP IN CHAIR, CALL LIGHT WITHIN REACH, REMOTE FOR TV WITHIN REACH. PT DENIES ANY NEEDS AT THIS TIME.
[2025-02-20 12:31] LABS: GLOMERULAR FILTRATION RATE,EST 75.0 mL/min (>60); UREA NITROGEN 15.0 mg/dL (7-18)
--- NOTE | 2025-02-20 15:04 | NUR ---
IN THE ROOM, ABX INFUSING. FAMILY IN THE ROOM WITH PATIENT, WATCHING TV. NO REQUESTS AT THIS TIME. CALL LIGHT IN REACH.
--- NOTE | 2025-02-20 16:20 | NUR ---
IN ROOM WITH PATIENT. IV ABX INFUSING. PATIENT UP IN BED, WATCHING TV. NG TUBE CONNECTED TO INTERMINT WALL SUCTION. PATIENT DESCRIBES SLIGHT PAIN BUT TOLERTABLE. NO REQUESTS AT THIS TIME. CALL LIGHT IN REACH.
--- NOTE | 2025-02-20 17:26 | NUR ---
PATIENT RESTING IN BED, WATCHING TV. AUSCULTATED BOWELS ABSENT AT THIS TIME. IV FLUIDS INFUSING AT THIS TIME. CALL LIGHT IN REACH.
--- NOTE | 2025-02-20 18:26 | NUR ---
PT SITTING UP IN BED, WATCHING TV WITH FAMILY IN THE ROOM IVF INFUSING. NG TUBE REMAINS CONNECTED TO INTERMENTTENT SUCTION. NO NEEDS AT THIS TIME. CALL LIGHT IN REACH.
--- NOTE | 2025-02-20 19:35 | NUR ---
REPORT RECEIVED FROM DAY SHIFT RN. PT LYING IN BED ALERT AND ORIENTED. DENIES NEEDS. WHITE BOARD UPDATED. CALL LIGHT IN REACH.
--- NOTE | 2025-02-20 22:43 | NUR ---
EVENING ASSESSMENT COMPLETE. SCHEDULED MEDS ADMIN PER EMAR. PT DENIES PAIN OR NAUSEA. BOWEL TONES ACTIVE. ABD SOFT. PT REPORTS FLATUS. NGT PATENT WITH SCANT AMOUNT BROWN DRAINAGE. DRESSING IN RIGHT GROIN CDI. IV IN RIGHT AC NOT PATENT. IV DC'D WNL. TIP INTACT. NEW 20 G PLACED IN LEFT AC X 1 ATTEMPT BY THIS RN. PT OCTAVIANO WELL. PT DENIES QUESTIONS OR CONCERNS. CALL LIGHT IN REACH.
[2025-02-21] VITALS (8 sets, daily range): BP systolic 123–150; BP diastolic 63–79
--- NOTE | 2025-02-21 00:01 | NUR ---
PT RESTING IN BED WITH EYES CLOSED. HOB ELEVATED. RESPIRATIONS EVEN. CALL LIGHT IN REACH.
--- NOTE | 2025-02-21 02:18 | NUR ---
PT IN BED RESTING WITH EYES CLOSED. RESPIRATIONS EVEN. CALL LIGHT IN REACH.
--- NOTE | 2025-02-21 02:51 | NUR ---
CALL LIGHT ANSWERED. PT REPORTS INCISIONAL PAIN 5/10 AND NGT DISCOMFORT. ASSISTED PT TO REPOSITION IN BED WITH PILLOWS. ICE PACK PROVIDED FOR INCISION. PRN FOR PAIN ADMIN PER EMAR. ABD ASSESSMENT UNCHANGED. PT REPORTS SHE IS COMFORTABLE AT THIS TIME. NO FURTHER NEEDS.
--- NOTE | 2025-02-21 03:28 | NUR ---
PT REPORTS CONTINUED RIGHT GROIN INCISION PAIN 5/. PRN FOR PAIN ADMIN PER EMAR. NO FURTHER NEEDS.
--- NOTE | 2025-02-21 05:10 | NUR ---
IV PUMP ALARMING. NEW BAG IVF INFUSING PER ORDER. PT UP TO BSC WITH 1PA TO VOID. PT ABLE TO DO OWN SHANIQUE CARE. BACK TO BED, OCTAVIANO WELL. REPOSITIONED WITH PILLOWS FOR COMFORT. VS AND I&O OBTAINED. NGT PATENT WITH SMALL AMOUNT BROWN DRAINAGE. PT DENIES PAIN OR NAUSEA AT THIS TIME. NO FURTHER NEEDS. CALL LIGHT IN REACH.
--- NOTE | 2025-02-21 08:04 | NUR ---
RECEIVED REPORT FROM NIGHT RN - PILO. PATIENT RESTING WITH EYES CLOSED, DID NOT AWAKEN WHEN THIS RN ENTER ROOMS. IV FLUIDS INFUSING ORDERED. PUMP CLEARED. NG TO LIS AT THIS TIME. PT ALLOWED TO REST, CALL LIGHT IS WITHIN REACH. NO NEEDS AT THIS TIME. WILL RETURN TO ASSESS PATIENT
--- NOTE | 2025-02-21 09:14 | NUR ---
HOURLY ROUNDING. PATIENT APPEARS TO BE TIRED. NO REQUEST AT THIS TIME BOARD HAS BEEN UPDATED AND CALL LIGHT HAS BEEN PLACED WITHIN REACH
--- NOTE | 2025-02-21 09:20 | NUR ---
Pt sleeping not awakened.
--- NOTE | 2025-02-21 10:35 | NUR ---
THIS RN IN TO SEE PATIENT, UP OT BATHROOM, ORAL CARE, COMBED HAIR AND PATIENT URINATED, NO BM. PT IS HAVING FLATUS, BT+, NG CLAMPED WHILE AMBULATING TO BATHROOM. PT UP TO CHAIR AT THIS TIME, STATES THE (R) GROIN INCISION IS NOT BURNING/PAINFUL THIS MORNING. SBA W/ FWW. DENIES NEED FOR PAIN MEDS. IVF RESTARTED WHEN UP IN CHAIR. WARM BLANKET PROVIDED. PRESENT AT BEDSIDE, ICE PROVIDED TO HIM. CALL LIGHT WITHIN REACH. ALL PT CARE NEEDS MET AT THIS TIME.
--- NOTE | 2025-02-21 11:29 | NUR ---
VISITED DURING SPIRITUAL CARE ROUNDS. PT IN OVERALL GOOD SPIRITS, NO IMMEDIATE NEEDS. CIGAR HEAD PIERCER PROVIDED SUPPORTIVE PRESENCE, HOSPITALITY, PRAYER, FACILITATED INTERACTION WITH THERAPY ANIMAL. PT EXPRESSED GRATITUDE.
--- NOTE | 2025-02-21 12:47 | NUR ---
HOURLY ROUNDING. PATIENT VISITING WITH FAMILY AND FRIEND. NO REQUEST FROM PATIENT, CALL HAS BEEN PLACED WITHIN REACH
[2025-02-21] MEDS ORDERED: SEVOFLURANE 250 ML BTL INH ONE (14:47)
--- NOTE | 2025-02-21 17:54 | NUR ---
IN ROOM, PULLED NG TUBE, REMAIN NPO TONIGHT AND START FULL LIQUID DIET FOR BREAKFAST. REQUESTING MELATONIN ORDER FOR BEDTIME, 3MG QHS PRN - ORDER INPUT. PT LINENS ON BED CHANGED BY THIS RN. INVENTORY CONTROL/SHIPPING RECEIVING IN GIVING PATIENT SHOWER. ALL PT CARE NEEDS MET AT THIS TIME.
[2025-02-21] MEDS ORDERED: MELATONIN 3 MG TAB PO PRN ×2 (18:00)
--- NOTE | 2025-02-21 19:20 | NUR ---
RECEIVED REPORT FROM DAYSORFT RN. PATIENT RESTING IN BED, TALKING ON PHONE. RESPIRATIONS EVEN AND UNLABORED. IV FLUSHED, WNL. IVF RESTARTED AT ORDERED RATE. PATIENT DENIES ANY FURTHER NEEDS, CALL LIGHT IN REACH.
--- NOTE | 2025-02-21 20:16 | NUR ---
VS OBTAINED AND RECORDED, INTAKE AND OUTPUT DOCUMENTED, ASSESSMENT COMPLETED. NEW IVF BAG HUNG PER ORDER, PRN MEDICATION GIVEN FOR SLEEP PER REQUEST. RESPIRATIONS EVEN AND UNLABORED. BOWEL TONES ACTIVE, TTP LUQ AND RLQ. SHE DENIES ANY FURTHER NEEDS CALL LIGHT IN REACH.
--- NOTE | 2025-02-21 21:54 | NUR ---
CALL LIGHT ANSWERED. PT NEEDED TO USE BATHROOM. MANUFACTURING BUSINESS ANALYST SBA WITH FWW TO BATHROOM. PT VOIDED AND ASSISTED TO BED. PT STATES NO FURTHER NEEDS AT THIS TIME. CALL LIGHT WITHIN REACH.
--- NOTE | 2025-02-21 22:18 | NUR ---
PATIENT RESTING WITH EYES CLOSED, RESPIRATIONS EVEN AND UNLABORED. SCHEDULED IV MEDICATION STARTED PER ORDER. NO NEEDS IDENTIFIED, CALL LIGHT IN REACH
--- NOTE | 2025-02-21 22:36 | NUR ---
PATIENT RESTING WITH EYES CLOSED, RESPIRATIONS EVEN AND UNLABORED. SCHEDULED IV MEDICATION STARTED PER ORDER. NO NEEDS IDENTIFIED, CALL LIGHT IN REACH
--- NOTE | 2025-02-21 23:11 | NUR ---
IV MEDICATION COMPLETE. DISCONTINUED, IVF CONTINUING TO INFUSE PER ORDER. PATIENT RESTING WITH EYES CLOSED, RESPIRATIONS EVEN AND UNLABORED. NO NEEDS IDENTIFIED, CALL LIGHT IN REACH
[2025-02-22] VITALS (10 sets, daily range): BP systolic 106–143; BP diastolic 61–74
--- NOTE | 2025-02-22 00:36 | NUR ---
CALL LIGHT ANSWERED, PATIENT REPORTS "HER SHEETS ARE ITCHY", GIVEN NEW BLANKETS, CHUX PADS PUT UNDER PATIETN WHICH SHE STATES ARE MORE COMFORTABLE. SHE DENIES FURTHER NEEDS, CALL LIGHT IN REACH
--- NOTE | 2025-02-22 02:21 | NUR ---
CALL LIGHT ANSWERED, PATIENT ESCORTED TO RESTROOM WITH FWW, BACK TO BED WITHOUT DIFFICULTY, CALL LIGHT IN REACH
--- NOTE | 2025-02-22 04:36 | NUR ---
ROUNDED ON PATIENT, PATIENT AWAKE, REQUESTS WARM BLANKET, PROVIDED PER REQUEST, IVF CONTINUING TO INFUSE PER ORDER WNL. SHE DENIES FURTHER NEEDS, CALL LIGHT IN REACH
--- NOTE | 2025-02-22 05:40 | NUR ---
PATIENT ESCORTED TO RESTROOM, BACK TO CHAIR WITHOUT DIFFICULTY. VS OBTAINED AND RECORDED, INTAKE AND OUTPUT DOCUMENTED. PATIENT DENIES FURTHER NEEDS, CALL LIGHT IN REACH
--- NOTE | 2025-02-22 07:15 | NUR ---
RECIEVED REPORT FROM ROBERT SLOAN. PT UP TO CHAIR, RESTING WITH EYES CLOSED, BREATHING EVEN AND UNLABORED. CALL LIGHT WITHIN REACH.
--- NOTE | 2025-02-22 09:35 | NUR ---
PT UP TO RESTROOM WITH FWW AND SBA. PT BACK UP TO CHAIR AFTER RESTROOM. NO NEEDS STATED AT THIS TIME, CALL LIGHT WITHIN REACH.
--- NOTE | 2025-02-22 10:40 | NUR ---
Spoke with Jeri. Her NG is out. Discussed plan for when she is discharged. Most likely tomorrow. Pt plans on spouse driving her to their new home in [place]. She denies needs. She was able to tolerated clear liq. Pt states two daughters live near here and they plan on helping her unpack her boxes. Family packed their home on Wednesday and took belongings to [place]. Pt denies needs.
--- NOTE | 2025-02-22 11:27 | NUR ---
PT WORKING WITH PHYSICAL THERAPY.
--- NOTE | 2025-02-22 11:47 | NUR ---
PT NOT AVAILABLE FOR VISIT. PROVIDED PRAYER.
--- NOTE | 2025-02-22 12:00 | NUR ---
Notified by PT/OT pt will need a walker and commode. Updated, Medicare does not cover commodes. Spoke with pt and she would like to use [facility]. I called Opal from [facility] and they will be in [place] today. They will deliver a walker. Chart faxed with RX to [facility].
--- NOTE | 2025-02-22 12:28 | NUR ---
PATIENT SAID SHE BRUSHED HER TEETH AND WASHED HER FACE AT FIVE O CLOCK THIS MORING.
--- NOTE | 2025-02-22 13:04 | NUR ---
PT UP TO RESTROOM WITH SBA AND FWW. PT AGREES TO PULL CALL LIGHT WHEN FINISHED. CALL LIGHT WITHIN REACH.
--- NOTE | 2025-02-22 14:30 | NUR ---
Babatunde delivered to pts room by Abdullahi.
--- NOTE | 2025-02-22 16:00 | NUR ---
THIS RN SALINE LOCKED PATIENT, IV ABX/MG INFUSION COMPLETED. THIS RN ASSISTED PATIENT SBA/FWW TO WALK IN HALLWAY, PATIENT ABLE TO TOLERATED AROUND NURSES STATION X1, SHE DID GET TIRED/DIZZY ONCE, WC WAS USED TO FOLLOW PATIENT FOR THIS REASON. PT BACK IN CHAIR, WARM BLANKET PROVIDED, DENIES NEED TO USE BATHROOM. CALL LIGHT WITHIN REAACH.
--- NOTE | 2025-02-22 18:47 | NUR ---
PT UP TO AMBULATE HALLWAY WITH CHARTER AND TOUR BUS DRIVER.
--- NOTE | 2025-02-22 19:57 | NUR ---
RECEIVED REPORT FROM DAYSHIFT RN, PATIENT IN ROOM WITH COST CONTROLLER. RESPIRATIONS EVEN AND UNLABORED IN IN NAD. NO NEEDS IDENTIFIED, CALL LIGHT IN REACH
--- NOTE | 2025-02-22 19:59 | NUR ---
PATIENT IS LAYING IN BED. PATIENT WAS PROVIDED WITH A WARM WASHCLOTH. PATIENT HAD ALREADY BRUSHED HER TEETH. PATIENTS CALL LIGHT IS WITHIN REACH AND NO FURTHER NEEDS AT THIS TIME.
--- NOTE | 2025-02-22 20:27 | NUR ---
TAXICAB STARTER OBTAINED VITALS. NO NEW I&O AT THIS TIME. PT STATES NO NEEDS AT THIS TIME. CALL LIGHT WITHIN REACH.
--- NOTE | 2025-02-22 20:53 | NUR ---
PATIENT AMBULATED TO RESTROOM WITH MINIMAL ASSISTANCE AND USE OF FWW. BACK TO BED WITHOUT DIFFICULTY, RESPIRATIONS EVEN AND UNLABORED. PRN SLEEPING MEDICATION GIVEN PER REQUEST. ASSESSMENT COMPLETE. SCD IN PLACE, NO FURTHER NEEDS, CALL LIGHT IN REACH
--- NOTE | 2025-02-22 22:34 | NUR ---
PATIENT RESTING WITH EYES CLOSED,M RESPIRATIONS EVEN AND UNLABORED. IV MEDICATION STARTED PER ORDER, NO NEEDS IDENTIFIED, CALL LIGHT IN REACH
--- NOTE | 2025-02-22 23:15 | NUR ---
scheduled iv abx infusing as directed. spoke to stevenson from telepharmacy regarding flagyl infusion rate, per stevenson okay to infuse ordered flagyl over 30-60 minutes, stevenson to update infusion rate in emar. iv site wnl.
--- NOTE | 2025-02-22 23:25 | NUR ---
PATIENT RESTING WITH EYES CLOSED, IV MEDICATION INFUSING WITHOUT DIFFICULTY. NO NEEDS IDENTIFIED, CALL LIGHT IN REACH
--- NOTE | 2025-02-22 23:55 | NUR ---
IV MEDICATION COMPLETE. IV SALINE LOCKED, WNL. PATIENT RESTING WITH EYES CLOSED, RESPIRATIONS EVEN AND UNLABORED. NO NEEDS IDENTIFIED, CALL LIGHT IN REACH
--- NOTE | 2025-02-23 01:41 | NUR ---
CALL LIGHT ANSWERED, pt UP SBA WITH FWW TO BATHROOM AND VOIDED UNMEASURED AMOUNT. pt BACK IN BED, CALL LIGHT IN REACH. NO ADDITIONAL NEEDS OR CONCERNS. pt REQUESTING SCD'S BE LEFT OFF AT THIS TIME, PRIMARY RN AWARE. BOARD UPDATED.
--- NOTE | 2025-02-23 02:14 | NUR ---
ROUNDED ON PATIENT, PATIENT RESTING WITH EYES CLOSED, RESPIRATIONS EVEN AND UNLABORED. NO NEEDS IDENTIFIED, CALL LIGHT IN REACH
[2025-02-23 05:30] VITALS: BP 124/63
--- NOTE | 2025-02-23 05:30 | NUR ---
STORES DESPATCH HAND OBTAINED VITALS AND I&O. PT STATES NO NEEDS AT THIS TIME. CALL LIGHT WITHIN REACH.
--- NOTE | 2025-02-23 06:00 | NUR ---
SCHEDULED MEDICATIONS GIVEN PER ORDER, PATIENT UP TO RESTROOM WITH SBA AND USE OF FWW. NO FURTHER NEEDS, ABD ASSESSMENT UNCHANGED.
[2025-02-23 06:41] VITALS: BP 124/63
--- NOTE | 2025-02-23 07:15 | NUR ---
RECIEVED REPORT FROM ROBRET SLOAN. PT UP TO RESTROOM PREPARING TO SHOWER. PT STATES NO CURRENT NEEDS, AIRLINE MANAGER AT BEDSIDE. CALL LIGHT WITHIN REACH.
--- NOTE | 2025-02-23 07:37 | NUR ---
IV IS OUT EVERYTHING INTACT. PATIENT IS IN THE SHOWER.
--- NOTE | 2025-02-23 08:13 | NUR ---
IMM LETTER DISCUSSED. WAIVES WAIT PERIOD AND PLANS TO GO HOME TODAY. NO CM NEEDS.
[2025-02-23 09:28] VITALS: BP 133/97
[2025-02-23 09:37] VITALS: BP 133/97
--- NOTE | 2025-02-23 09:55 | NUR ---
PT DRESSED IN OWN CLOTHES, IV DC'D WNL. VSS. DC PACKET AND EDUCATION GIVEN, PT STATES ALL QUESTIONS HAVE BEEN ANSWERED AND VERBALIZES UNDERSTANDING. PT UP TO WHEELCHAIR WITH SBA AND FWW. PT LEAVING WITH ALL BELONGINGS. PT WHEELED TO FRONT OF BUILDING BY NURSING PERSONEL.
== END 2025-02-23 09:55 | disposition home or self-care (01) | DRG 329 ==
LOC: ED 17:43 → MS 17:45
PROVIDERS: Emergency Medicine; ADMIT Surgery; ATTEND Surgery
PROC: 0D9670Z Drainage of Stomach with Drainage Device, Via Natural or Artificial Opening (ICD-10-PCS; 2025-02-19)
PROC: 3E03329 Introduction of Other Anti-infective into Peripheral Vein, Percutaneous Approach (ICD-10-PCS; 2025-02-19)
PROC: 0DB80ZZ Excision of Small Intestine, Open Approach (ICD-10-PCS; principal; 2025-02-20)
PROC: 0YQ50ZZ Repair Right Inguinal Region, Open Approach (ICD-10-PCS; 2025-02-20)
PROC: 0YU70JZ Supplement Right Femoral Region with Synthetic Substitute, Open Approach (ICD-10-PCS; 2025-02-20)
DX: K55.029 Acute infarction of small intestine, extent unspecified (principal); K41.40 Unilateral femoral hernia, with gangrene, not specified as recurrent; K56.2 Volvulus; K40.31 Unilateral inguinal hernia, with obstruction, without gangrene, recurrent; Z87.19 Personal history of other diseases of the digestive system; Z90.49 Acquired absence of other specified parts of digestive tract; Z90.710 Acquired absence of both cervix and uterus; Z98.890 Other specified postprocedural states; Z79.899 Other long term (current) drug therapy; Z79.891 Long term (current) use of opiate analgesic; Z79.2 Long term (current) use of antibiotics; Z79.82 Long term (current) use of aspirin
CPT/HCPCS: 00790; 36415; 51798; 64425; 71045; 74177; 76942; 80048; 80053; 81001; 83690; 83735; 85025; 88307; 94762; 96361; 96365; 96366; 96367; 96368; 96375; 96376; 97116; 97161; 97165; 97530; 99285-25; C1781; G0378; J0131; J0330; J0688; J0694; J0696; J0780; J1100; J2003; J2270; J2405; J2704; J2795; J3010; J3475; J3490; J7030; J7121; Q9967